=== PATIENT | male | born 1980 | race Caucasian/White ===

== ENCOUNTER 2016-10-23 02:52 | Inpatient (IN) | payer MEDICAID ==
[~2016-10-23] VITALS: Ht 190.5 cm; Wt 85.3 kg
[~2016-10-23 02:52] MED LIST: PAIN MED
[2016-10-23 02:58] VITALS: BP_SYST 127
[2016-10-23] MEDS ORDERED: HYDROmorphone 1 MG INJ. 1 MG/ML AMPUL IVP ONE ×2 (03:15→05:30)
[2016-10-23] MEDS ORDERED: ONDANSETRON HCL 4 MG/2 ML VIAL ONE (03:42)
[2016-10-23] MEDS ORDERED: ONDANSETRON HCL 4 MG/2 ML VIAL IVP ONE (03:45)
[2016-10-23 04:05] LABS: HEMATOCRIT 42.6 % (36-54); HEMOGLOBIN 14.1 g/dL (14.0-18.0); MEAN CORPUSCULAR HEMOGLOBIN 28 pg (27-31); MEAN CORPUSCULAR HGB CONC 33 % (32-36); MEAN CORPUSCULAR VOLUME 84 fL (79.0-98.0); PLATELET COUNT (AUTO) 246 K/uL (130-430); RED BLOOD CELL COUNT(AUTO) 5.09 MIL/uL (4.2-6.2); RED CELL DISTRIBUTION WIDTH 12.2 % (9.0-15.0); WHITE BLOOD COUNT (AUTO) 10.9 K/uL (4.8-10.8)
[2016-10-23 04:06] LABS: BASOPHILS % (AUTO) 0.3 % (0.0-2.0); EOSINOPHILS % (AUTO) 0.4 % (0.0-4.0); LYMPHOCYTES # (AUTO) 1.1 K/uL (1.0-5.5); LYMPHOCYTES % (AUTO) 10.2 % (20.5-51.5); MONOCYTES # (AUTO) 0.6 K/uL (0.0-1.0); MONOCYTES % (AUTO) 5.8 % (1.7-9.3); NEUTROPHILS # (AUTO) 9.2 K/uL (1.8-7.7); NEUTROPHILS % (AUTO) 83.3 % (40.0-70.0)
[2016-10-23 04:07] LABS: CALCIUM 9.9 mg/dL (8.4-11.0); CREATININE 1.03 mg/dL (0.55-1.30)
[2016-10-23 04:09] LABS: INR 1.1 (0.80-1.20); PROTHROMBIN TIME 12.4 SECS (9.5-12.5)
[2016-10-23 04:11] LABS: ALBUMIN 4.5 g/dL (3.4-4.8); TOTAL BILIRUBIN 0.9 mg/dL (0.0-1.0)
[2016-10-23 04:12] LABS: POTASSIUM 2.5 mmol/L (3.5-5.1)
[2016-10-23] MEDS ORDERED: KCL 20 mEq in 100 mL (PREMIX) 100 ML IV ONE (04:15)
[2016-10-23] MEDS ORDERED: NACL 0.9% 1,000 ML IV ONE (04:45)
[2016-10-23] MEDS ORDERED: ONDANSETRON HCL 4 MG/2 ML VIAL IVP PRN (06:00)
[2016-10-23 06:38] VITALS: BP_SYST 107
[2016-10-23] MEDS ORDERED: FAMO40TA7 PO (06:53)
[2016-10-23] MEDS ORDERED: HYDR-4100 PO (06:54)
[2016-10-23] MEDS: D5/0.45 NS 1,000 ML IV SCH ×2 (07:09→16:00)
[2016-10-23 08:44] VITALS: BP_SYST 133
[2016-10-23] MEDS: MORPHINE 2 MG/ML INJ. SYRINGE IVP PRN ×6 (09:14→20:41)
[2016-10-23 12:24] VITALS: BP_SYST 124
[2016-10-23] MEDS ORDERED: DIATR MEGLU/DIATRIZ SOD 30 ML SOLUTION PO ONE (13:29)
[2016-10-23 15:58] VITALS: BP_SYST 144
[2016-10-23] MEDS ORDERED: IOHEXOL 100 ML IV ONE (17:39)
[2016-10-23 19:45] VITALS: BP_SYST 142
[2016-10-23] MEDS ORDERED: KETOROLAC TROMETHAMINE 30 MG VIAL IVP ONE (22:15)
[2016-10-24 00:55] VITALS: BP_SYST 122
[2016-10-24] MEDS: MORPHINE 2 MG/ML INJ. SYRINGE IVP PRN (05:21)
[2016-10-24 05:55] VITALS: BP_SYST 130
[2016-10-24 06:15] LABS: BASOPHILS % (AUTO) 0.2 % (0.0-2.0); EOSINOPHILS % (AUTO) 0.3 % (0.0-4.0); HEMATOCRIT 38.8 % (36-54); LYMPHOCYTES # (AUTO) 1.1 K/uL (1.0-5.5); LYMPHOCYTES % (AUTO) 21.9 % (20.5-51.5); MEAN CORPUSCULAR HEMOGLOBIN 28 pg (27-31); MEAN CORPUSCULAR HGB CONC 33 % (32-36); MEAN CORPUSCULAR VOLUME 84 fL (79.0-98.0); MONOCYTES # (AUTO) 0.4 K/uL (0.0-1.0); MONOCYTES % (AUTO) 8.5 % (1.7-9.3); NEUTROPHILS # (AUTO) 3.5 K/uL (1.8-7.7); NEUTROPHILS % (AUTO) 69.1 % (40.0-70.0); PLATELET COUNT (AUTO) 218 K/uL (130-430); RED BLOOD CELL COUNT(AUTO) 4.61 MIL/uL (4.2-6.2); RED CELL DISTRIBUTION WIDTH 11.9 % (9.0-15.0)
[2016-10-24 06:45] LABS: ALBUMIN 3.8 g/dL (3.4-4.8); CREATININE 0.68 mg/dL (0.55-1.30); TOTAL BILIRUBIN 0.9 mg/dL (0.0-1.0)
[2016-10-24 07:16] LABS: POTASSIUM 2.8 mmol/L (3.5-5.1)
[2016-10-24 08:03] VITALS: BP_SYST 140
[2016-10-24] MEDS ORDERED: KCL 40 mEq in 100 mL (PREMIX) 100 ML IV ONE (08:15)
[2016-10-24] MEDS ORDERED: KCL 20 mEq in 100 mL (PREMIX) 200 ML IV ONE (08:15)
[2016-10-24 12:41] VITALS: BP_SYST 136
== END 2016-10-24 12:55 | disposition left against medical advice (07) | DRG 247 ==
LOC: SED 02:52 → SMU 05:57
DX: K56.2 Volvulus (principal); E87.6 Hypokalemia; K56.60 Unspecified intestinal obstruction; F17.210 Nicotine dependence, cigarettes, uncomplicated; Z87.442 Personal history of urinary calculi; Z98.84 Bariatric surgery status; Z79.899 Other long term (current) drug therapy
CPT/HCPCS: 36415; 78226; 80053; 82150-TC; 83605; 83690-TC; 85025; 85610-TC; 85730-TC; 96365; 96366; 96375; 96376; 99285; A9537; J1170; J1885; J2270; J2405; J3480; J7030; Q9964; Q9967